=== PATIENT | male | born 1965 | race Asian ===

== ENCOUNTER 2019-01-04 09:37 | Day surgery (SDC) | payer OTHER ==
[2019-01-03 08:40] VITALS: BMI 33.9
--- NOTE | 2019-01-03 17:11 | HP ---
HISTORY OF PRESENT ILLNESS: This is a 53-year-old male, who comes in for a colonoscopy for colon cancer screening. The patient has no specific disease found. There is no family history of colon cancer. ALLERGIES: NONE. SOCIAL HISTORY: The patient does not smoke or drink alcohol. MEDICAL ILLNESS: 1. Obesity. 2. Type 2 diabetes. 3. Sleep apnea. 4. Cervical spine disease. 5. Hyperlipidemia. PAST SURGICAL HISTORY: None. PHYSICAL EXAMINATION: GENERAL: Appears comfortable. VITAL SIGNS: Pulse is 70 and blood pressure is 130/80. HEENT: Conjunctivae are clear. CARDIOVASCULAR SYSTEM: First and second heart sounds heard. LUNGS: Clear to auscultation. ABDOMEN: Soft. No organomegaly. No tenderness. No masses. ADMITTING DIAGNOSIS: A 53-year-old male comes for a colonoscopy for colon cancer screening. Job ID: [id number]
--- NOTE | 2019-01-04 13:18 | OP ---
DATE OF PROCEDURE: 01/04/2019 OPERATIVE PROCEDURE: Colonoscopy. PREOPERATIVE DIAGNOSIS: A 53-year-old [place] male, undergoing colonoscopy for colon cancer screening. POSTOPERATIVE DIAGNOSIS: Normal colonoscopy. DESCRIPTION OF PROCEDURE: The patient was placed on his left lateral position and was given sedation by Anesthesia Department. A rectal exam was done before the scope was advanced into the rectum. No lesions felt on rectal exam. A Pentax videocolonoscope was introduced into the rectum and advanced all the way to the cecum. The prep was good except for he had large amount of frothy bilious material. Mylicon was added to the irrigant solution and the colon was very good. The appendiceal orifice, ileocecal wall, and cecum, no pathology. The mucosa appears normal throughout the colon with normal vascular pattern. Withdrawal of scope in the cecum, ascending colon, and hepatic flexure, no pathology seen. The transverse colon, splenic flexure, and descending colon, no pathology seen. Retroflexion of scope in the rectum showed no pathology. ENDOSCOPE IMPRESSION: Normal colonoscopy. DISCHARGE PLAN: This is a 53-year-old [place] male, came for a colonoscopy for colon cancer screening. The colonoscopy showed no pathology. DISCHARGE RECOMMENDATION: 1. The patient does call me, if he develops abdominal pain or hematochezia. 2. Repeat colonoscopy in 10 years. Job ID: [id number]
[2019-01-04] MEDS ORDERED: PROPOFOL 200 MG/20 ML VIAL ONE (14:19)
== END 2019-01-04 12:12 | disposition home or self-care (01) ==
LOC: SDC 09:37
PROVIDERS: ATTEND Internal Medicine Gastroenterology
PROC: 0DJD8ZZ Inspection of Lower Intestinal Tract, Via Natural or Artificial Opening Endoscopic (ICD-10-PCS; principal; 2019-01-04)
DX: Z12.11 Encounter for screening for malignant neoplasm of colon (principal); E78.5 Hyperlipidemia, unspecified; E11.9 Type 2 diabetes mellitus without complications; G47.30 Sleep apnea, unspecified; M48.9 Spondylopathy, unspecified; E66.9 Obesity, unspecified; Z68.33 Body mass index [BMI] 33.0-33.9, adult

== ENCOUNTER 2019-10-13 10:13 | Outpatient (CLI) | payer OTHER ==
--- NOTE | 2019-10-13 10:37 | RAD ---
EXAM: XR Cerv Sp Ap Lat STANDARD PROVIDED CLINICAL HISTORY: Radiculopathy cervical region. COMPARISON: None. FINDINGS: Neutral, flexion, and extension views cervical spine are provided. C1 to the C6-7 level is seen on la teral view. The majority of the C7 vertebral body as well as cervicothoracic junction are obscured. Narrowing of the intervertebral disc spaces are seen at the C5-6 and C6-7 levels with osteophyte form ation at these levels. The vertebral body heights are within normal limits. No fracture or subluxation is seen on lateral images from C1 to C6-7 level. Prevertebral soft tissues appear to be w ithin normal limits. IMPRESSION: 1. Exclusion of the majority C7 vertebral body and cervicothoracic junction. 2. Degenerative changes lower cervical spine. 3. No evidence of subluxation from C1 to C6-7 level.
== END 2019-10-13 10:14 | disposition home or self-care (01) ==
LOC: RAD 10:13
PROVIDERS: ATTEND Nurse Practitioner Family
DX: M47.22 Other spondylosis with radiculopathy, cervical region (principal); M43.12 Spondylolisthesis, cervical region
CPT/HCPCS: 72040